=== PATIENT | female | born 1950 ===

== ENCOUNTER 2019-05-17 11:51 | Emergency (ER) | payer OTHER ==
[~2019-05-17] VITALS: Ht 162.6 cm; Wt 72.6 kg
[~2019-05-17 11:51] MED LIST: ALPRAZOLAM0.25 MG PO; CATAFLAM50 MG PO; DOLOGEN CAPLET1 EACH PO; EVISTA60 MG PO; LOZARTAN; MEDROL4 MG PO; MICARDIS HCT1 UDTAB PO; OMEPRAZOLE20 MG PO; ORPH100T PO; PLAQUENIL
[2019-05-17] MEDS ORDERED: COZAAR25 MG PO (12:05)
[2019-05-17] MEDS ORDERED: NORVASC10 MG PO (12:05)
[2019-05-17] MEDS ORDERED: NORVASC2.5 M1 PO (12:06)
[2019-05-17] MEDS ORDERED: ASPIRIN81 MG PO (12:06)
[2019-05-17] MEDS ORDERED: LIPITOR20 MG PO (12:06)
== END 2019-05-17 14:57 | disposition home or self-care (01) ==
LOC: ER 11:51
DX: N39.0 Urinary tract infection, site not specified (principal)

== ENCOUNTER → 2019-05-28 | Emergency (ER) | payer OTHER ==
[~2019-05-28] VITALS: Ht 162.6 cm; Wt 71.2 kg
[~2019-05-28] MED LIST changes: +ASPIRIN81 MG PO; +COZAAR25 MG PO; +LIPITOR20 MG PO; +NORVASC10 MG PO; +NORVASC2.5 M1 PO
== END | disposition home or self-care (01) ==
LOC: ER 13:41
DX: K58.8 Other irritable bowel syndrome (principal)